=== PATIENT | female | born 1995 | race Asian ===

== ENCOUNTER 2024-01-07 11:39 | Observation (INO) | payer OTHER ==
[~2024-01-07] VITALS: Ht 162.6 cm; Wt 64.4 kg
[2024-01-07 11:37] VITALS: BP 125/80; PULSE 102; RESP 20; TEMP 97.6
[2024-01-07] MEDS ORDERED: LACTATED RINGERS 500 ML IV ONE (12:40)
[2024-01-07] MEDS: LACTATED RINGERS 1,000 ML IV SCH (13:08)
[2024-01-07 13:26] LABS: BASOPHILS # (AUTO) 0.1 K/uL (0.00-0.22); BASOPHILS % (AUTO) 0.8 % (0.0-2.0); EOSINOPHILS % (AUTO) 0.5 % (0.0-4.0); HEMATOCRIT 33.3 % (36-48); HEMOGLOBIN 11.2 g/dL (12.0-16.0); LYMPHOCYTES # (AUTO) 2.6 K/uL (2.5-16.5); LYMPHOCYTES % (AUTO) 28.1 % (20.5-51.1); MEAN CORPUSCULAR HEMOGLOBIN 25 pg (27-31); MEAN CORPUSCULAR HGB CONC 34 g/dL (33-37); MEAN CORPUSCULAR VOLUME 75.1 fL (80-94); MONOCYTES # (AUTO) 0.9 K/uL (0.8-1.0); MONOCYTES % (AUTO) 10.1 % (1.7-9.3); NEUTROPHILS # (AUTO) 5.6 K/uL (1.8-7.7); NEUTROPHILS % (AUTO) 60.5 % (42.2-75.2); PLATELET COUNT (AUTO) 136 K/uL (140-450); RED BLOOD CELL COUNT(AUTO) 4.43 MIL/uL (4.20-5.40); RED CELL DISTRIBUTION WIDTH 15.7 % (11.6-13.7); WHITE BLOOD COUNT (AUTO) 9.3 K/uL (4.8-10.8)
[2024-01-07 13:50] LABS: APPEARANCE,URINE CLEAR (CLEAR); BILIRUBIN,URINE 1+ (NEGATIVE); BLOOD, URINE 1+ (NEGATIVE); COLOR,URINE YELLOW (YELLOW); LEUKOCYTE ESTERASE ,URINE TRACE (NEGATIVE); NITRITE, URINE NEGATIVE (NEGATIVE); PH,URINE 6.5 (5.0-9.0); PROTEIN,URINE 3+ (NEGATIVE); UGLUCOSE NEGATIVE (NEGATIVE)
[2024-01-07 13:53] LABS: ALBUMIN 2.1 g/dL (3.4-5.0); ANION GAP 14.2 (8-16); CALCIUM 8.3 mg/dL (8.5-10.1); CARBON DIOXIDE 22.9 mmol/L (21-32); CREATININE 0.6 mg/dL (0.6-1.3); POTASSIUM 4.1 mmol/L (3.5-5.1); TOTAL BILIRUBIN 0.3 mg/dL (0.0-1.0)
[2024-01-07 14:00] LABS: INR 0.94 (0.8-1.2); PARTIAL THROMBOPLASTIN TIME 25.2 secs (22-35.6); PROTHROMBIN TIME 9.9 secs (10.8-13.4)
[2024-01-07 14:24] LABS: URINE TOTAL PROTEIN 366.4 mg/dL (0-12); URINE TPRO CREAT RATIO 1.5 (0-0.20)
[2024-01-07 14:55] LABS: BACTERIA,URINE 1+ /HPF (None Seen); ICTOTEST NEGATIVE (NEGATIVE); MUCUS,URINE 1+ /LPF (None Seen); RBC,URINE 11-20 (MOD) /HPF (0-5); SQUAMOUS EPITHELIAL CELL,UR 20-50 /LPF (0-3 (FEW)); TRICHOMONAS,URINE None Seen /HPF (None Seen); YEAST,URINE None Seen /HPF (None Seen)
[2024-01-07] MEDS ORDERED: MORPHINE SULFATE 10 MG/ML VIAL ONE (15:22)
[2024-01-07] MEDS ORDERED: ONDANSETRON 4 MG/2 ML VIAL ONE (15:22)
[2024-01-07] MEDS: ONDANSETRON 4 MG/2 ML VIAL IVP PRN (15:31)
[2024-01-07] MEDS: MORPHINE SULFATE 10 MG/ML VIAL IVP PRN ×2 (15:33→19:39)
[2024-01-07] MEDS ORDERED: PRETAB PO (18:45)
[2024-01-08 00:15] VITALS: BP 138/87; PULSE 76; RESP 20
== END 2024-01-08 09:25 | disposition home or self-care (01) ==
LOC: MLD 11:39
PROVIDERS: ADMIT Obstetrics & Gynecology; ATTEND Obstetrics & Gynecology
DX: O12.13 Gestational proteinuria, third trimester (principal); Z20.822 Contact with and (suspected) exposure to COVID-19; O09.523 Supervision of elderly multigravida, third trimester; O47.1 False labor at or after 37 completed weeks of gestation; Z3A.37 37 weeks gestation of pregnancy
CPT/HCPCS: 36415; 80053; 81001; 82570; 84550; 85025; 85384; 85610; 85730; 86592; 86886; 86900; 86901; 87086; 87426; 96361; 96374; 96375; 96376; G0378; G0379; J2270; J2405

== ENCOUNTER 2024-01-20 07:55 | Inpatient (IN) | payer OTHER ==
[~2024-01-20] VITALS: Ht 162.6 cm; Wt 74.4 kg
[~2024-01-20 07:55] MED LIST: PRETAB PO
[2024-01-20] MEDS ORDERED: METHYLERGONOVINE 0.2 MG/ML AMP IM PRN (08:10)
[2024-01-20] MEDS ORDERED: CARBOPROST 250 MCG/ML AMP IM PRN (08:10)
[2024-01-20 08:53] LABS: BASOPHILS # (AUTO) 0.1 K/uL (0.00-0.22); EOSINOPHILS % (AUTO) 0.6 % (0.0-4.0); HEMATOCRIT 33.1 % (36-48); HEMOGLOBIN 10.9 g/dL (12.0-16.0); LYMPHOCYTES # (AUTO) 2.1 K/uL (2.5-16.5); LYMPHOCYTES % (AUTO) 24.4 % (20.5-51.1); MEAN CORPUSCULAR HEMOGLOBIN 24 pg (27-31); MEAN CORPUSCULAR HGB CONC 33 g/dL (33-37); MEAN CORPUSCULAR VOLUME 74.4 fL (80-94); MONOCYTES # (AUTO) 0.9 K/uL (0.8-1.0); MONOCYTES % (AUTO) 10.2 % (1.7-9.3); NEUTROPHILS # (AUTO) 5.5 K/uL (1.8-7.7); NEUTROPHILS % (AUTO) 63.8 % (42.2-75.2); PLATELET COUNT (AUTO) 155 K/uL (140-450); RED BLOOD CELL COUNT(AUTO) 4.45 MIL/uL (4.20-5.40); RED CELL DISTRIBUTION WIDTH 16.2 % (11.6-13.7); WHITE BLOOD COUNT (AUTO) 8.7 K/uL (4.8-10.8)
[2024-01-20] MEDS: LACTATED RINGERS 1,000 ML IV SCH (09:03)
[2024-01-20 09:09] LABS: APPEARANCE,URINE CLEAR (CLEAR); BILIRUBIN,URINE NEGATIVE (NEGATIVE); BLOOD, URINE 2+ (NEGATIVE); COLOR,URINE YELLOW (YELLOW); LEUKOCYTE ESTERASE ,URINE TRACE (NEGATIVE); NITRITE, URINE NEGATIVE (NEGATIVE); PH,URINE 6.5 (5.0-9.0); PROTEIN,URINE 3+ (NEGATIVE); UGLUCOSE NEGATIVE (NEGATIVE); UROBILINOGEN,URINE 0.2 EU/dL (0.2 - 1)
[2024-01-20 09:15] LABS: CALCIUM 8.3 mg/dL (8.5-10.1); CREATININE 0.7 mg/dL (0.6-1.3); TOTAL BILIRUBIN 0.2 mg/dL (0.0-1.0); TOTAL PROTEIN, SERUM 5.7 g/dL (6.4-8.2)
[2024-01-20 09:17] LABS: INR 0.91 (0.8-1.2); PARTIAL THROMBOPLASTIN TIME 24.4 secs (22-35.6); PROTHROMBIN TIME 9.6 secs (10.8-13.4)
[2024-01-20 09:20] LABS: BACTERIA,URINE FEW /HPF (None Seen); MUCUS,URINE 1+ /LPF (None Seen); SQUAMOUS EPITHELIAL CELL,UR 4-10 (MOD) /LPF (0-3 (FEW)); WBC,URINE 0-5 /HPF (0-5)
[2024-01-20] MEDS ORDERED: ROPIVACAINE 0.2%/NS PREMIX 200 ML EPI ONE ×3 (09:47→23:59)
[2024-01-20] MEDS ORDERED: LIDOCAINE MPF 2% 100 MG/5 ML VIAL INJ ONE (12:54)
[2024-01-20] MEDS ORDERED: MORPHINE SULFATE 10 MG/ML VIAL ONE (13:15)
[2024-01-20] MEDS ORDERED: ONDANSETRON 4 MG/2 ML VIAL ONE (13:15)
[2024-01-20] MEDS ORDERED: MISOPROSTOL 25 MCG TAB ONE (13:17)
[2024-01-20] MEDS: ONDANSETRON 4 MG/2 ML VIAL IVP PRN (13:21)
[2024-01-20 13:23] VITALS: BP 135/103; PULSE 83; RESP 20; O2SAT 100
[2024-01-20] MEDS: MORPHINE SULFATE 10 MG/ML VIAL IVP PRN (13:23)
[2024-01-20] MEDS ORDERED: LIDOCAINE 1% 500 MG/50 ML VIAL ONE (13:50)
[2024-01-20] MEDS ORDERED: OXYTOCIN/0.9 % SODIUM CHLORIDE 500 ML IV SCH (18:00)
[2024-01-20] MEDS ORDERED: LIDOCAINE/EPI MPF 2%1:200000 10 ML VIAL INJ ONE ×2 (19:52→23:00)
[2024-01-20] MEDS: OXYTOCIN/0.9 % SODIUM CHLORIDE 500 ML IV SCH (23:20)
[2024-01-21] MEDS ORDERED: METHYLERGONOVINE 0.2 MG TAB PO PRN (04:45)
[2024-01-21] MEDS ORDERED: OXYTOCIN 10 UNITS/ML VIAL IM PRN (04:45)
[2024-01-21] MEDS ORDERED: BENZOCAINE/MENTHOL 20%-0.5% 60 GM CAN TP PRN (04:45)
[2024-01-21] MEDS ORDERED: METHYLERGONOVINE 0.2 MG/ML AMP IM PRN (04:45)
[2024-01-21] MEDS: IBUPROFEN 800 MG TAB PO PRN (04:58)
[2024-01-21] MEDS: IBUPROFEN 600 MG TAB PO PRN (17:04)
[2024-01-21] MEDS: DOCUSATE SOD/SENNA 50/8.6 MG 1 TAB PO SCH (21:01)
[2024-01-22 05:55] LABS: HEMATOCRIT 29.3 % (36-48); HEMOGLOBIN 9.7 g/dL (12.0-16.0)
== END 2024-01-22 14:27 | disposition home or self-care (01) | DRG 806 ==
LOC: MLD 07:55 → MFCC 01-21 05:49
PROVIDERS: ADMIT Obstetrics & Gynecology; ATTEND Obstetrics & Gynecology
PROC: 10E0XZZ Delivery of Products of Conception, External Approach (ICD-10-PCS; principal; 2024-01-20)
DX: O99.013 Anemia complicating pregnancy, third trimester (principal); D62 Acute posthemorrhagic anemia; Z37.0 Single live birth; Z3A.39 39 weeks gestation of pregnancy; Z20.822 Contact with and (suspected) exposure to COVID-19
CPT/HCPCS: 36415; 51702; 59409; 76815; 80053; 81001; 85018; 85025; 85610; 85730; 86592; 86886; 86900; 86901; J2001; J2270; J2405; J2795; Q0092

== ENCOUNTER 2024-01-24 18:57 | Emergency (ER) | payer OTHER ==
[~2024-01-24] VITALS: Ht 162.6 cm; Wt 67.6 kg
[2024-01-24 18:58] VITALS: BP 140/72; PULSE 74; RESP 18; TEMP 98.6; O2SAT 99
[2024-01-24 20:00] VITALS: O2SAT 99
[2024-01-24] MEDS: HYDROcodone/APAP 5/325 MG 1 TAB TAB PO ONE (21:10)
[2024-01-24] MEDS ORDERED: HYDR-5191 PO (21:10)
== END 2024-01-24 21:19 | disposition home or self-care (01) ==
LOC: MED 18:57
DX: K64.4 Residual hemorrhoidal skin tags (principal); Z79.899 Other long term (current) drug therapy
CPT/HCPCS: 99283